=== PATIENT | female | born 1950 | race Caucasian/White ===

== ENCOUNTER 2017-11-09 00:39 | Emergency (ER) | payer MEDICAID ==
[~2017-11-09] VITALS: Ht 162.6 cm; Wt 77.1 kg
--- NOTE | 2017-11-09 01:04 | Emergency Room Report ---
History of Present Illness General Chief Complaint: Abdominal Pain Source: Patient Present Illness HPI Is a 67-year-old female with a history hypertension and diabetes. She also had an appendectomy when she was 10. She presents with chief complaint is abdominal pain with nausea and vomiting. Also with headache afterward. 5 days ago she had similar symptom but lasted for a few hours but better. Today she's been vomiting all day. Vomiting is nonbloody nonbilious. No diarrhea. Abdominal cramping tightness. Never had this problem before. No fever or chills. Pain is 7 out of 10 crampy in nature. Allergies: Coded Allergies: No Known Allergies (Unverified , 11/09/17) Patient History Past Medical History: see triage record, old chart reviewed, DM Past Surgical History: appy Pertinent Family History: none Social History: Denies: smoking Now: No Immunizations: other Reviewed Nursing Documentation: PMH: Agreed; PSxH: Agreed Nursing Documentation-PMH Hx Hypertension: Yes Hx Diabetes: Yes Review of Systems Eye: Denies: eye pain, blurred vision ENT: Denies: ear pain, nose congestion, throat swelling Respiratory: Denies: cough, shortness of breath Cardiovascular: Denies: chest pain, palpitations Gastrointestinal: Reports: abdominal pain, nausea, vomiting; Denies: diarrhea Musculoskeletal: Denies: back pain, joint pain Skin: Denies: rash Neurological: Denies: headache, numbness Endocrine: Denies: increased thirst, increased urine Hematologic/Lymphatic: Denies: easy bruising All Other Systems: negative except mentioned in HPI Physical Exam Vital Signs Date Time Temp Pulse Resp B/P (MAP) Pulse Ox O2 Delivery O2 Flow Rate FiO2 11/09/17 00:39 98.1 116 18 136/90 98 Room Air 98.1 vitals with tachycardia Sp02 EP Interpretation: reviewed, normal General Appearance: well appearing, no apparent distress, alert Head: normocephalic, atraumatic Eyes: bilateral eye PERRL, bilateral eye EOMI ENT: hearing grossly normal, normal pharynx Neck: full range of motion, supple, no meningismus Respiratory: chest non-tender, lungs clear, normal breath sounds Cardiovascular #1: regular rate, rhythm, no murmur Gastrointestinal: no mass, no organomegaly, no bruit, non-distended, tenderness - mild, diffuse, decreased bowel sounds Musculoskeletal: back normal, gait/station normal, normal range of motion Psychiatric: mood/affect normal Skin: warm/dry Medical Decision Making Diagnostic Impression: Primary Impression: Cholecystitis, acute Additional Impression: Gallstones ER Course She with epigastric pain and vomiting. CT scan showed gallstones. Because of the elevated white count, I put her on antibiotics for cholecystitis. Ultrasound ordered. Patient is otherwise stable for transfer based on insurance. I spoke with the nurse for patient's insurance. She accepted the patient for transfer to [facility] to the service of Dr. Grewal. Lab Results Impression labs with elevated WBC Rhythm Strip Diag. Results Rhythm Strip Time: 04:12 EP Interpretation: yes CT/MRI/US Diagnostic Results CT/MRI/US Diagnostic Results : Imaging Test Ordered: CT abdomen and pelvis Impression read by radiologist. Hysterectomy. gallstones. Fatty liver. Last Vital Signs Date Time Temp Pulse Resp B/P (MAP) Pulse Ox O2 Delivery O2 Flow Rate FiO2 11/09/17 00:39 98.1 116 18 136/90 98 Room Air 98.1 Status: improved LESLY VIVEROS M.D. Nov 09, 2017 01:04
[2017-11-09] MEDS ORDERED: Ketorolac 30mg Inj IV ONE (01:15)
[2017-11-09 01:40] LABS: HEMATOCRIT 42.1 % (37.0-47.0); HEMOGLOBIN 14.4 G/DL (12.0-16.0); MEAN CORPUSCULAR VOLUME 90 FL (80-99); PLATELET COUNT 428 K/UL (150-450); RED CELL DISTRIBUTION WIDTH 11.5 % (11.6-14.8)
[2017-11-09 01:45] LABS: ANION GAP 13 mmol/L (5-15); BLOOD UREA NITROGEN 16 mg/dL (7-18); CALCIUM 9.8 MG/DL (8.5-10.1); CARBON DIOXIDE 25 MMOL/L (21-32); CHLORIDE 99 MMOL/L (98-107); SODIUM 137 MMOL/L (136-145); WHITE BLOOD COUNT 23.9 K/UL (4.8-10.8)
[2017-11-09 01:49] LABS: ALANINE AMINOTRANSFERASE 51 U/L (12-78); ALBUMIN 3.9 G/DL (3.4-5.0); ALBUMIN/GLOBULIN RATIO 0.8 (1.0-2.7); ALKALINE PHOSPHATASE 102 U/L (46-116); ASPARTATE AMINO TRANSFERASE 63 U/L (15-37); BILIRUBIN,TOTAL 0.5 MG/DL (0.2-1.0)
[2017-11-09] MEDS ORDERED: Morphine Sulfate 4mg/ml Inj (IV USE ONLY) IVP ONE ×2 (02:45→05:15)
[2017-11-09] MEDS ORDERED: Piperacillin/Tazobactam 3.375 GM in NS 110 ML IVPB ONE (02:45)
[2017-11-09 03:10] VITALS: BP 115/57
[2017-11-09 03:37] LABS: APPEARANCE,URINE CLEAR; BILIRUBIN, URINE NEGATIVE (NEGATIVE); GLUCOSE, URINE (UA) NEGATIVE (NEGATIVE); KETONES,URINE NEGATIVE (NEGATIVE); LEUKOCYTE ESTERASE ,URINE 1+ (NEGATIVE); NITRITE,URINE NEGATIVE (NEGATIVE); PH,URINE 5 (4.5-8.0); PROTEIN,URINE 2+ (NEGATIVE); UROBILINOGEN,URINE NORMAL MG/DL (0.0-1.0)
[2017-11-09 03:40] LABS: COLOR,URINE YELLOW
[2017-11-09] MEDS ORDERED: Morphine Sulfate 4mg/ml Inj (IV USE ONLY) ONE (05:09)
[2017-11-09 05:12] VITALS: BP 118/70
[2017-11-09 07:01] VITALS: BP 105/61
[2017-11-09 09:02] VITALS: BP 105/61
[2017-11-09 09:17] VITALS: BP 105/61
--- NOTE | 2017-11-09 09:17 | Diagnostic Imaging Report ---
Indication: Nausea, vomiting, abnormal white cell count, abnormal liver function tests and lipase Technique: Tang-scale and duplex images of the upper abdomen were obtained Comparison: CT scan performed earlier the same day Findings: Gallbladder contains sludge. No stones. No wall thickening nor pericholecystic fluid. Sonographic Gtz's sign is negative. Common bile duct measures 7 mm in diameter. No intrahepatic biliary ductal dilatation. Liver demonstrates diffusely increased echogenicity, consistent with diffuse hepatocellular disease, most likely fatty change. It is equivocally slightly enlarged. Portal vein and hepatic veins are patent. Pancreas is unremarkable. Spleen is unremarkable. Left kidney measures 11.4 cm in length. Right kidney measures 12.3 cm length. Both kidneys demonstrate normal echogenicity. There is no hydronephrosis. The left kidney demonstrates small cysts. These are occult on earlier CT. . Abdominal aorta is partially obscured by bowel gas, visualized portions are non-aneurysmal . Impression: Gallbladder sludge. Negative for gallstones Mildly ectatic common bile duct, likely related to patient's age, or may be artifactual as it appears to be normal caliber on recent CT scan. Downstream obstruction not completely excludable however. Correlate with liver function tests, consider MRCP if clinically indicated Fatty liver, also demonstrated on prior CT. Borderline hepatomegaly Incidental finding left renal cysts Note inability to optimally visualize the distal abdominal aorta
--- NOTE | 2017-11-09 12:09 | Diagnostic Imaging Report ---
Indication: Abdominal pain for one week Technique: Spiral acquisitions obtained through the abdomen and pelvis. No oral contrast utilized, per emergency room physician request No IV contrast utilized, per referring physician request.. Multiplanar reconstructions were generated. Total dose length product 907.29 mGycm. CTDIvol(s) 17.25 mGy. Dose reduction achieved using automated exposure control Comparison: Reference made to ultrasound of the abdomen performed subsequently Findings: There is fairly extensive colonic diverticulosis. No evidence of acute diverticulitis. The appendix is not clearly identified, but no findings to suggest acute appendicitis are evident. Small bowel loops are fluid-filled, upper limits of normal in caliber. There is a small to moderate-sized sliding-type hiatal hernia. The remainder of the stomach is unremarkable. The duodenum is unremarkable. No free or loculated intraperitoneal gas or fluid. There is a small fat-containing left inguinal hernia. Lack of IV contrast limits assessment of solid organs. The liver is diffusely hypoattenuating, consistent with diffuse fatty change. No focal abnormality. There is a capsular calcification at the dome. The liver is mildly enlarged. The gallbladder contains subtle dense material layering dependently, demonstrated on subsequent ultrasound represent sludge. The bile ducts are unremarkable. The pancreas is atrophic. The spleen, adrenals, left kidney are unremarkable. Equivocal subcentimeter low-attenuation lesions are seen in the upper pole the right kidney which are too small to characterize if real. No ureteral dilatation or calculi. The bladder is unremarkable. The uterus is absent, presumably postsurgically. No pelvic mass or adenopathy. No retroperitoneal or mesenteric mass or adenopathy. The included lung bases demonstrate posterior dependent atelectatic changes. The bones demonstrate degenerative spondylosis changes. There is an old fracture deformity versus unfused apophysis of the left L3 transverse process. Impression: No definite acute process Colonic diverticulosis. No evidence of diverticulitis Enlarged fatty liver Gallbladder sludge. No stones or biliary ductal dilatation Dependent posterior pulmonary atelectatic changes Other findings as noted, including possible old L3 and diffuse fracture deformity versus unfused apophysis, degenerative spondylosis, surgically absent uterus, possible upper pole renal cysts on the right, pancreatic atrophy, small fat-containing left inguinal hernia, hiatal hernia This agrees with the preliminary interpretation provided overnight by [email or web address] teleradiology service. The CT scanner at is accredited by the [employer] and the scans are performed using protocols designed to limit radiation exposure to as low as reasonably achievable to attain images of sufficient resolution adequate for diagnostic evaluation.
== END 2017-11-09 09:19 | disposition short-term general hospital (02) ==
LOC: EDBD 00:39 → EMR 01:14 → EDBEDREQ 02:41 → EMR 09:19
DX: K80.00 Calculus of gallbladder with acute cholecystitis without obstruction (principal); E11.9 Type 2 diabetes mellitus without complications; I10 Essential (primary) hypertension
CPT/HCPCS: 36415; 74176; 76700; 80053; 81003; 83690; 85007; 85025; 96361; 96365; 96375; 96376; 99284; J1885; J2270; J2405; J2543

== ENCOUNTER 2020-01-02 10:09 | Outpatient (CLI) | payer MEDICAID ==
--- NOTE | 2020-01-02 11:45 | Consultation ---
DATE OF CONSULTATION: 01/02/2020 CHIEF COMPLAINT: Referral for colonoscopy, also the patient has chronic acid reflux disease. PAST MEDICAL HISTORY: 1. Diabetes. 2. Hypertension. 3. Pneumonia. 4. Morbid obesity. PAST SURGICAL HISTORY: 1. Bilateral knee surgery. 2. Appendectomy. 3. Hysterectomy. MEDICATIONS: Please see medication reconciliation list. ALLERGIES: No known drug allergies. FAMILY HISTORY: Noncontributory. SOCIAL HISTORY: The patient denies any tobacco, alcohol, or drug abuse. REVIEW OF SYSTEMS: Positive for chronic GERD. PHYSICAL EXAMINATION: VITAL SIGNS: Temperature 97.2. Vital signs stable. Weight is 183. HEENT: Normocephalic and atraumatic. Sclerae anicteric. NECK: Supple. No evidence of obvious lymphadenopathy. CARDIOVASCULAR: Regular rate and rhythm. Plus S1, S2. LUNGS: Clear to auscultation bilaterally. ABDOMEN: Positive bowel sounds. Soft and nontender. No rebound. No guarding. No peritoneal sign. EXTREMITIES: No cyanosis, no clubbing, no edema. ASSESSMENT AND PLAN: This is a 69-year-old female, need for screening colonoscopy given she never had a colonoscopy, also she is complaining of chronic GERD to the point of wakening up at nighttime. We are going to start on omeprazole 40 mg daily. Consider increasing it twice a day if no improvement. We also going to schedule for endoscopy. Jose Lanad M.D. DR: Arnaldo JOB#: [id number] CC:
== END 2020-01-02 12:09 | disposition home or self-care (01) ==
LOC: PAN 10:09
DX: K21.9 Gastro-esophageal reflux disease without esophagitis (principal); E11.9 Type 2 diabetes mellitus without complications; I10 Essential (primary) hypertension; Z90.89 Acquired absence of other organs; Z90.710 Acquired absence of both cervix and uterus
CPT/HCPCS: G0463